=== PATIENT | female | born 2005 | race American Indian/Alaskan Native ===

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

== ENCOUNTER 2023-01-27 21:22 | Emergency (ER) | payer OTHER ==
[2023-01-27] MEDS ORDERED: Ondansetron 4 MG/2 ML SDV IVPUSH ONE (23:17)
[2023-01-27] MEDS ORDERED: fentaNYL 100 MCG/2 ML SDV IVPUSH ONE (23:17)
[2023-01-28 00:36] VITALS: BP 138/84; PULSE 65
== END 2023-01-28 00:32 | disposition home or self-care (01) ==
LOC: DL.ED 21:22
DX: S62.327A Displaced fracture of shaft of fifth metacarpal bone, left hand, initial encounter for closed fracture (principal); W22.01XA Walked into wall, initial encounter
CPT/HCPCS: 29125; 73130; 96374; 96375; 99282; 99283; J2405; J3010